=== PATIENT | female | born 1965 | race Caucasian/White ===

== ENCOUNTER 2020-03-14 12:20 | Emergency (ER) | payer OTHER, SELFPAY ==
[2020-03-14 12:37] VITALS: BP 121/68; PULSE 78; RESP 18; TEMP 36.9; O2SAT 100
--- NOTE | 2020-03-14 12:44 | ED.GENADULT ---
HPI - General Adult General Chief complaint: Urogenital-Female Stated complaint: uti Time Seen by Provider: 03/14/20 12:44 Source: patient Mode of arrival: ambulatory Limitations: no limitations History of Present Illness HPI narrative: 55-year-old female patient presents to the the medical center with complaints of urinary symptoms. Patient states she has had urgency, frequency she states that she has been having trouble emptying her bladder. Patient also complains of vaginal itching and irritation. Patient complains of lower abdominal pain and nausea. Denies any vomiting or diarrhea. Denies any fevers, chest pain or shortness of breath. Patient states she has recently been sexually active with a new partner but denies any vaginal discharge. Denies any concerns for STDs. Related Data Allergies Allergy/AdvReac Type Severity Reaction Status Date / Time codeine Allergy Intermediate Verified 06/28/16 13:33 amoxicillin Allergy Unknown YEAST Verified 06/28/16 13:33 INFECTION Review of Systems Review of Systems: Narrative: CONSTITUTIONAL: Denies fever, chills, or sweats. EYES: Denies visual changes, redness, or discharge. ENT: Denies rhinorrhea, congestion, sore throat, or otalgia. CARDIOVASCULAR: Denies chest pain, palpitations, or edema. RESPIRATORY: Denies cough or dyspnea. GASTROINTESTINAL: Positive lower abdominal pain, nausea, denies vomiting, or diarrhea. GENITOURINARY: Denies dysuria or hematuria. Positive burning with urination, urgency, frequency SKIN: Denies rash or itching. MUSCULOSKELETAL: Denies back pain, joint pain, or myalgia. NEUROLOGIC: Denies headache, numbness, or weakness. PSYCHIATRIC: Denies anxiety or depression. PMFSH Comments At the time of my signature I agree with nursing past medical history, surgical, social, and family history. There is no relevant family history pertinent to the presenting complaint. Exam Narrative: Exam Narrative: GENERAL: Well-appearing, well-nourished, and in no acute distress. HEAD: Normocephalic, atraumatic. EYES: PERRLA and EOMI. ENT: Nares clear, no rhinorrhea or epistaxis. Mucous membranes moist. NECK: Supple. No lymphadenopathy CHEST: Clear to auscultation. No respiratory distress. HEART: Regular rate and rhythm. No murmur heard. Normal peripheral pulses. ABDOMEN: Soft, flat, nondistended. No guarding, rebound tenderness, or rigid. No pulsatilla masses. Bowel sounds present in all four quadrants. No organomegaly. Negative Vergara?s sign. No periumbicial tenderness. Supra public tenderness , no distension. Good femoral pulses bilaterally. No hernia noted. No scars or surface trauma. Left-sided CVA tenderness on percussion EXTREMITIES: Normal range of motion. No edema. SKIN: Warm, dry, no rash. NEURO: No focal deficits. Alert and oriented x3. Course Vital Signs Vital signs: Vital Signs Temperature 36.9 C 03/14/20 12:37 Pulse Rate 78 03/14/20 12:37 Respiratory Rate 18 03/14/20 12:37 Blood Pressure 121/68 03/14/20 12:37 Pulse Oximetry 100 03/14/20 12:37 Temperature 36.9 C 03/14/20 12:37 Pulse Rate 78 03/14/20 12:37 Respiratory Rate 18 03/14/20 12:37 Blood Pressure 121/68 03/14/20 12:37 Pulse Oximetry 100 03/14/20 12:37 Vital signs reviewed. Medical Decision Making Differential Diagnosis Differential Diagnosis: Differential diagnosis: Uncomplicated lower UTI, uncomplicated UTI, pyelonephritis Discussed with patient that her urine dip does not show any obvious evidence of UTI however given her symptoms as well as the fact that she has been newly sexually active we will go ahead and start her on an antibiotic. Patient also requesting Diflucan for possible yeast infection that she can take after her antibiotics. Discussed with patient we will go ahead and give that to her as well however if she continues to have symptoms I would highly recommend that she be tested for STDs. Patient refusing STD testing at this time. Patient verbaliz
== END 2020-03-14 13:05 | disposition home or self-care (01) ==
PROVIDERS: Emergency Provider Nurse Practitioner Family
DX: N30.01 Acute cystitis with hematuria (principal)
CPT/HCPCS: 81003; 87086; 99213; G0463